=== PATIENT | female | born 1980 | race Caucasian/White ===

== ENCOUNTER → 2016-04-09 | Outpatient (CLI) | payer OTHER | LOC: YCFC.O 09:34 | PROVIDERS: ATTEND Anesthesiology Pain Medicine | DX: Z79.891 Long term (current) use of opiate analgesic (principal) | CPT/HCPCS: 80354; 80358; 80365; G0479 ==

== ENCOUNTER → 2016-05-30 | Outpatient (CLI) | payer OTHER | END | disposition home or self-care (01) | LOC: LAB.O 11:01 | PROVIDERS: ATTEND Otolaryngology | DX: D61.3 Idiopathic aplastic anemia (principal); E11.9 Type 2 diabetes mellitus without complications; E78.2 Mixed hyperlipidemia; E07.89 Other specified disorders of thyroid; K72.90 Hepatic failure, unspecified without coma ==

== ENCOUNTER → 2016-07-06 | Outpatient (CLI) | payer OTHER | END | disposition home or self-care (01) | LOC: YCFC.O 17:16 | PROVIDERS: ATTEND Nurse Practitioner Family | DX: R10.9 Unspecified abdominal pain (principal) ==

== ENCOUNTER → 2016-07-11 | Outpatient (CLI) | payer OTHER ==
--- NOTE | 2016-07-12 08:31 | US ---
EXAM DESCRIPTION: Gall Bladder CLINICAL HISTORY: 36 years,Female,UNSPECIFIED ABD PN COMPARISON: None TECHNIQUE: Multiple real-time sonographic images were obtained of the right upper quadrant. FINDINGS: The liver demonstrates normal echotexture. No masses. No cysts. It measures 15.2 cm in craniocaudal length. Gallbladder demonstrates small amount sludge in the lumen. There is no intrahepatic biliary ductal dilatation. The gallbladder wall thickness is unremarkable. No pericholecystic fluid. The common bile duct measures two mm in diameter. Right kidney demonstrates normal cortical echotexture and thickness. No stones or hydronephrosis. The pancreas visualized portions of the head and body appear unremarkable. No free fluid in the right upper quadrant. IMPRESSION: Mild sludge in the gallbladder. Electronically signed by: Froylan Mathew MD 07/12/2016 8:26 AM CDT
== END ==
LOC: US 09:04
PROVIDERS: ATTEND Nurse Practitioner Family
DX: R10.9 Unspecified abdominal pain (principal)

== ENCOUNTER 2016-07-13 15:36 | Emergency (ER) | payer OTHER ==
[2016-07-13 15:58] VITALS: TEMP 98.2
--- NOTE | 2016-07-13 15:58 | ED.PDOC ---
History of Present Illness - General Chief Complaint: Abdominal Pain Stated Complaint: abdominal pain Time Seen by Provider: 07/13/16 15:39 Information Source: patient, RN notes reviewed, Vital Signs reviewed, old records Exam Limitations: no limitations - History of Present Illness Initial Comments: Patient has been having RUQ abd pain for the past week. Worse after eating but then resolves on own after a couple of hours. + nausea. Pain radiates to her low back. Saw her PCP and had sonogram of gallbladder done which just showed sludge in the GB. No cholesystitis. + chills and subjective fever while pain is ongoing. Abdominal Pain Onset Location: generalized abdomen Pain Radiation: back Quality: severe, cramping, steady Timing/Duration: 1-3 hours - Pain last a few hours but has been coming off and on for a week or so. Improving Factors: nothing Worsening Factors: eating Associated Symptoms: back pain, fever/chills, nausea/vomiting Review of Systems - Review of Systems Constitutional: States: chills, fever. Denies: diaphoresis, malaise EENTM: States: no symptoms reported Respiratory: States: no symptoms reported. Denies: cough, short of breath Cardiology: States: no symptoms reported Gastrointestinal/Abdominal: States: see HPI, abdominal pain, nausea Genitourinary: States: no symptoms reported Musculoskeletal: States: see HPI, back pain Skin: States: no symptoms reported Neurological: States: no symptoms reported. Denies: headache Endocrine: States: no symptoms reported Hematologic/Lymphatic: States: no symptoms reported Past Medical History (General) - Patient Medical History Hx Seizures: No Hx Stroke: No Hx Dementia: No Hx Asthma: Yes Hx of COPD: No Hx Cardiac Disorders: No Hx Congestive Heart Failure: No Hx Pacemaker: No Hx Hypertension: No Hx Thyroid Disease: No Hx Diabetes: No Hx Gastroesophageal Reflux: No Hx Renal Disease: No Hx Cancer: No Hx of HIV: No Hx Hepatitis C: No Hx MRSA: No - Vaccination History Hx Tetanus, Diphtheria Vaccination: No Hx Influenza Vaccination: No Hx Pneumococcal Vaccination: No - Social History Hx Tobacco Use: Yes Hx Chewing Tobacco Use: No Hx Alcohol Use: Yes Hx Substance Use: No Hx Substance Use Treatment: No Hx Depression: No Hx Physical Abuse: No Hx Emotional Abuse: No Hx Suspected Abuse: No - Female History Patient : - does not believe so Family Medical History - Family History Mother Family History: No Known Physical Exam - Physical Exam General Appearance: Alert, Comfortable, No apparent distress Respiratory: chest non-tender, lungs clear, normal breath sounds, no respiratory distress, no accessory muscle use Cardiovascular/Chest: regular rate, rhythm, no edema, no gallop, no JVD, no murmur Gastrointestinal/Abdominal: normal bowel sounds, soft, no organomegaly, tenderness - mild, no guarding or rebound Neurologic: no motor/sensory deficits, alert, normal mood/affect, oriented x 3 Skin Exam: normal color, warm/dry Progress - Progress Progress: 07/13/16 17:05 CT scan and labs are unremarkable. Probably needs a HIDA scan. Discussed with patient. She has an appt scheduled with Dr. Mace, Gen. Surgeon, on Saturday. Discussed clear liquid diet to help with symptoms. Will give Tyl #3 and Zofran to have at home. - Results/Orders Results/Orders: Laboratory Tests 07/13/16 07/13/16 07/13/16 16:09 16:09 16:30 WBC 7.0 RBC 4.34 Hgb 13.8 Hct 39.3 MCV 90.6 MCH 31.7 H MCHC 35.0 RDW 12.6 Plt Count 273 MPV 7.8 Absolute Neuts (auto) 3.70 Absolute Lymphs (auto) 2.30 Absolute Monos (auto) 0.50 Absolute Eos (auto) 0.30 Absolute Basos (auto) 0.10 Neutrophils % 53.6 Lymphocytes % 33.5 Monocytes % 7.0 Eosinophils % 4.9 Basophils % 1.0 Sodium 136 Potassium 3.5 L Chloride 102 Carbon Dioxide 27 Anion Gap 10.5 L BUN 20 H Creatinine 0.91 BUN/Creatinine Ratio 22.0 H Random Glucose 95 Serum Osmolality 274.4 L Calcium 8.9 Total Bilirubin 0.6 AST 21 ALT 28 Alkaline Phosphatase 55 Serum Total Protein 7.3 Albumin 4.2 Globulin 3.1 Albumin/Globulin Ratio 1.4 Urine Color Yellow Urine Appearance Clear Urine pH 6.5 Ur Specific [place] 1.015 Urine Protein Negative Urine Glucose (UA) Negative Urine Ketones Negative Urine Blood Negative Urine Nitrite Negative Urine Bilirubin Negative Urine Urobilinogen 0.2 Ur Leukocyte Esterase Negative Urine RBC 0 Urine WBC 0-1 Ur Epithelial Cells 0-1 Urine Bacteria 0 - EKG/XRAY/CT CT Ordered: Yes - No acute findings on Abd/Pelvis CT Departure - Departure Clinical Impression: Colic, biliary Time of Disposition: 17:16 Disposition: Discharge to Home or Self Care Condition: Fair Departure Forms: ED Discharge - Pt. Copy, Patient Portal Self Enrollment Instructions: DI for Biliary Colic Diet: full liquid diet Activity: increase activity as tolerated Referrals: Patt Acevedo FNP [Primary Care Provider] - 1-2 Weeks Prescriptions: Ondansetron [Zofran Odt] 4 mg PO Q4HR PRN #20 tab PRN Reason: Nausea/Vomiting Acetaminophen W/ Codeine [Tylenol W/ CODEINE #3] 1 ea PO Q6HR PRN #15 PRN Reason: Moderate To Severe Pain Home Medications: Ambulatory Orders Acetaminophen W/ Codeine [Tylenol W/ CODEINE #3] 1 ea PO Q6HR PRN #15 07/13/16 Ondansetron [Zofran Odt] 4 mg PO Q4HR PRN #20 tab 07/13/16 Additional Instructions: Keep scheduled follow up with Dr. Mace Clear liquid diet.
[2016-07-13] MEDS ORDERED: HYDROmorphone HCL INJ 2 MG/ML VIAL IV ONE (16:14)
[2016-07-13] MEDS ORDERED: ONDANSETRON INJ 4 MG/2 ML VIAL IV ONE (16:14)
--- NOTE | 2016-07-13 16:33 | CT ---
EXAM DESCRIPTION: Abdoment/Pelvis w/o Contrast CLINICAL HISTORY: abd. pain COMPARISON: Ultrasound July 11, 2016 TECHNIQUE: Noncontrast transaxial CT images of the abdomen and pelvis are obtained. This exam was performed according to our departmental dose-optimization program, which includes automated exposure control, adjustment of the mA and/or kV according to patient size and/or use of iterative reconstruction technique . FINDINGS: The visualized lung bases are unremarkable. Given the limitations of a noncontrast exam, the liver, spleen, pancreas, adrenal glands, and contracted gallbladder are unremarkable. Abdominal vasculature is unremarkable. Kidneys show no significant nephrolithiasis. No ureteral obstruction. Urinary bladder is unremarkable. Uterus and ovaries are unremarkable. The appendix is within normal limits. No small bowel obstruction is seen. The colon is unremarkable. No significant diverticular disease is identified. No abnormal lymphadenopathy. Osseous structures show no aggressive bony lesions. IMPRESSION: No acute findings on noncontrast CT of the abdomen and pelvis. Electronically signed by: Danny Fregoso MD 07/13/2016 4:32 PM CDT
[2016-07-13 18:04] VITALS: BP 146/89; O2SAT 97
== END 2016-07-13 17:45 | disposition home or self-care (01) ==
LOC: ER 15:36
DX: K80.50 Calculus of bile duct without cholangitis or cholecystitis without obstruction (principal); Z87.891 Personal history of nicotine dependence

== ENCOUNTER → 2016-07-17 | Outpatient (CLI) | payer OTHER ==
--- NOTE | 2016-07-18 13:32 | RAD ---
EXAM DESCRIPTION: Abdomen Flat Upright CLINICAL HISTORY: 36 years Female, RIGHT UPPER QUADRANT PAIN COMPARISON: None. FINDINGS: The lung bases are clear and no free abdominal air is noted with a normal bowel gas pattern on the supine study with a moderate amount of stool throughout the colon suggesting an element of constipation. No unusual calculi are soft tissue masses are seen. The bony structures are normal. IMPRESSION: Modest amount of stool throughout the colon suggesting an element of constipation but without fecal impaction or obstruction. Electronically signed by: En Ornelas MD 07/18/2016 1:32 PM CDT
== END ==
LOC: RAD 16:19
PROVIDERS: ATTEND Surgery
DX: R10.11 Right upper quadrant pain (principal)

== ENCOUNTER → 2016-07-19 | Outpatient (CLI) | payer OTHER ==
--- NOTE | 2016-07-19 16:12 | NM ---
EXAM DESCRIPTION: Hepatobiliar w/CCK CLINICAL HISTORY: 36 years, Female, RUQ ABD PAIN COMPARISON: Gallbladder ultrasound July 11 FINDINGS: Patient injected with 6 mCi of technetium 99M Choletec. Sequential images of the right upper quadrant show liver, intrahepatic ducts, extrahepatic ducts gallbladder and small bowel Patient is status post fatty meal. Following the fatty meal injection there was some abdominal pain. Ejection fraction is approximately 40%. Ejection fraction is manually calculated due to motion artifact IMPRESSION: 1. Normal visualization the gallbladder 2. Ejection fraction within normal limits. 3. Fatty marrow ingestion did induce mild abdominal pain Electronically signed by: Harvey Sosa MD 07/19/2016 4:12 PM CDT
== END | disposition home or self-care (01) ==
LOC: NM 07:41
PROVIDERS: ATTEND Surgery
DX: R10.11 Right upper quadrant pain (principal)

== ENCOUNTER → 2016-08-20 | Outpatient (CLI) | payer OTHER ==
--- NOTE | 2016-08-21 18:02 | RAD ---
Procedure: XR CHEST 2 VIEWS Exam Date: 08/20/2016 Ordering Provider: Kecia Quiñonez Clinical Indication: PALPITATIONS Comparison: None Findings: Cardiac silhouette: Normal Pulmonary vasculature : Normal Mediastinal contour: Normal Aortic contour: Normal Focal lung consolidation: None Pleural effusion: None Pneumothorax: None Acute bony or soft tissue abnormality: None Impression: 1. No acute abnormalities in the chest. Electronically signed by: Dennis Long MD 08/21/2016 6:02 PM CDT
== END ==
LOC: LAB.O 17:32
PROVIDERS: ATTEND Nurse Practitioner Family
DX: R00.2 Palpitations (principal); R53.83 Other fatigue; R60.9 Edema, unspecified

== ENCOUNTER → 2016-10-01 | Outpatient (CLI) | payer OTHER | END | disposition home or self-care (01) | LOC: YCFC.O 11:47 | PROVIDERS: ATTEND Nurse Practitioner Family | DX: E03.9 Hypothyroidism, unspecified (principal) ==

== ENCOUNTER → 2017-01-29 | Outpatient (CLI) | payer OTHER | END | disposition home or self-care (01) | LOC: LAB.O 14:57 | DX: R60.9 Edema, unspecified (principal); E03.9 Hypothyroidism, unspecified ==

== ENCOUNTER → 2017-05-08 | Outpatient (CLI) | payer OTHER | LOC: YCFC.O 13:38 | DX: R03.0 Elevated blood-pressure reading, without diagnosis of hypertension (principal); Z84.0 Family history of diseases of the skin and subcutaneous tissue ==

== ENCOUNTER → 2017-05-29 | Outpatient (CLI) | payer OTHER | LOC: YCFC.O 14:43 | DX: Z98.84 Bariatric surgery status (principal) ==

== ENCOUNTER → 2017-07-08 | Outpatient (CLI) | payer OTHER | LOC: YCFC.O 11:02 | DX: Z98.84 Bariatric surgery status (principal) ==

== ENCOUNTER → 2017-07-10 | Outpatient (CLI) | payer OTHER ==
--- NOTE | 2017-07-11 12:23 | CT ---
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 MPR images are created and reviewed as well. FINDINGS: Lower brain appears normal. Normal enhancement of the vessels of the resighini of [place]. Normal orbital contents. Paranasal sinuses are clear. Normal parapharyngeal fatty spaces. Normal symmetrical appearance of the parotid and submandibular salivary glands. Small lymph nodes are normal. Normal enhancement of cervical vessels. Thyroid gland appears normal. Lung apices are clear. Coronal and sagittal reformatted images confirm the findings. Degenerative disc disease is seen at the C5-6 and C6-7 levels. Mild spinal stenosis at C5-6. Normal appearance of the base the tongue. No tonsillar enlargement. Normal epiglottis and aryepiglottic folds. Normal larynx and subglottic trachea. Clinical history indicates a supraclavicular mass. A normal lymph node is seen in the left supraclavicular region. Normal lower cervical lymph nodes. No vascular abnormality. No muscular or soft tissue mass. No definite lipoma. Prominent supraclavicular fatty tissue appears symmetrical bilaterally. Normal appearance of the medial aspects of brachial plexus on both sides. Sagittal images show prominent fatty tissue over the dorsal aspect of the lower neck and upper back. Dromedary hump-type fatty accumulation can be associated with endogenous or exogenous steroids. IMPRESSION: No diagnostic abnormality is identified on postcontrast CT imaging of the neck. Degenerative cervical disc disease at C5-6. This exam was performed according to our departmental dose-optimization program, which includes automated exposure control, adjustment of the mA and/or kV according to patient size and/or use of iterative reconstruction technique. Electronically signed by: Lex Chi MD 07/11/2017 12:21 PM CDT
== END ==
LOC: CT 14:30
DX: D48.7 Neoplasm of uncertain behavior of other specified sites (principal)

== ENCOUNTER → 2018-12-09 | Outpatient (CLI) | payer BC | LOC: YCFC.O 11:19 | PROVIDERS: ATTEND Nurse Practitioner Family | DX: Z00.00 Encounter for general adult medical examination without abnormal findings (principal); R00.2 Palpitations; I10 Essential (primary) hypertension; E03.9 Hypothyroidism, unspecified ==

== ENCOUNTER → 2019-01-02 | Outpatient (CLI) | payer BC | LOC: RESP 11:58 | PROVIDERS: ATTEND Nurse Practitioner Family | DX: R94.31 Abnormal electrocardiogram [ECG] [EKG] (principal) ==

== ENCOUNTER → 2019-06-23 | Outpatient (CLI) | payer BC | LOC: YCFC.O 10:30 | PROVIDERS: ATTEND Family Medicine | DX: E03.9 Hypothyroidism, unspecified (principal); I10 Essential (primary) hypertension; E78.5 Hyperlipidemia, unspecified; R53.83 Other fatigue ==